=== PATIENT | male | born 1995 | race Caucasian/White ===

== ENCOUNTER 2019-11-03 14:50 | Emergency (ER) | payer OTHER ==
[~2019-11-03] VITALS: Ht 167.6 cm; Wt 79.4 kg
[2019-11-03] MEDS ORDERED: ONDANSETRON ODT8 MG PO (16:07)
== END 2019-11-03 16:20 | disposition home or self-care (01) ==
LOC: ED 14:50
DX: K52.9 Noninfective gastroenteritis and colitis, unspecified (principal)
CPT/HCPCS: 80053; 81001; 83690; 85025; 96361; 96374; 99284-25; J2405; J7030

== ENCOUNTER 2023-01-06 08:39 | Emergency (ER) | payer BC ==
[~2023-01-06] VITALS: Ht 167.6 cm; Wt 81.3 kg
[~2023-01-06 08:39] MED LIST: ONDANSETRON ODT8 MG PO
[2023-01-06] MEDS ORDERED: MAXITROL EYE DRO5 ML OPTH (08:51)
[2023-01-06 08:58] VITALS: BP 130/82
== END 2023-01-06 08:59 | disposition home or self-care (01) ==
LOC: ED 08:39
DX: H20.9 Unspecified iridocyclitis (principal)
CPT/HCPCS: 99283

== ENCOUNTER 2023-02-14 09:51 | Emergency (ER) | payer BC ==
[~2023-02-14] VITALS: Ht 167.6 cm; Wt 79.5 kg
--- OUTSIDE RECORDS SUMMARY | ~2023-02-14 | XMS | Continuity of Care Document ---
Demographics + + + | Address | [address] | | | [place] [address] | + + + | Preferred Language | Unknown | + + + | Marital Status | Never | + + + | Latter Day Affiliation | Unknown | + + + | Race | White | + + + | Ethnic Group | Not or | + + + Author + + + | Author | [place] | + + + | Organization | [place] | + + + | Address | [address] | | | [place] [address] | + + + | Phone | | + + + Care Team Providers + + + + | Care Assistant Professor In Family Studies Name | Role | Phone | + + + + Unavailable | Unavailable | + + + + Unavailable | Unavailable | + + + + Unavailable | Unavailable | + + + + Allergies and Intolerances + + + + + + | date | description | facility | reaction | severity | + + + + + + | (no date) | Allergies: | [facility] | (no reaction) | (no severity) | + + + + + + | (no date) | No Known | [facility] | (no reaction) | (no severity) | | | Allergies | | | | + + + + + + Encounters No information. Functional Status No information. Immunizations + + + + | date | description | facility | + + + + | 2023-01-06 00:00 | No vaccine administered | [facility] | + + + + Medications + + + + | date | description | facility | + + + + | 2023-01-06 00:00 | RODNEY/POLYMYX B | [facility] | | | SULF/DEXAMETH | | + + + + | 2023-01-06 00:00 | dexamethasone 1 MG/ML / | [facility] | | | neomycin 3.5 MG/ML / | | | | polymyxin B 100 | | + + + + Problems + + + + | date | description | facility | + + + + | 2023-01-06 00:00 | Iritis | [facility] | + + + + | 2023-01-06 08:40 | UNSPECIFIED IRIDOCYCLITIS | [facility] | + + + + Procedures No information. Results/Labs No information. Social History + + + + | date | description | facility | + + + + | 2023-01-06 00:00 | Never smoker | [facility] | + + + + Vital Signs + + + +---------+ | date | measurement | value | units | + + + +---------+ | 2023-01-06 00:00 | BMI | 28.9 | kg/m2 | + + + +---------+ | 2023-01-06 00:00 | BP_diastolic | 82 | mmHg | + + + +---------+ | 2023-01-06 00:00 | BP_systolic | 130 | mmHg | + + + +---------+ | 2023-01-06 00:00 | heart_rate | 81 | /min | + + + +---------+ | 2023-01-06 00:00 | height_metric | 167.64 | cm | + + + +---------+ | 2023-01-06 00:00 | height_standard | 66 | in | + + + +---------+ | 2023-01-06 00:00 | o2_saturation | 98 | % | + + + +---------+ | 2023-01-06 00:00 | respiration_rate | 16 | /min | + + + +---------+ | 2023-01-06 00:00 | temperature_metric | 36.83 | C | | | | | | + + + +---------+ | 2023-01-06 00:00 | | 98.3 | F | | | temperature_standar | | | | | d | | | + + + +---------+ | 2023-01-06 00:00 | weight_metric | 81.3 | kg | + + + +---------+ | 2023-01-06 00:00 | weight_standard | 179.24 | lb | + + + +---------+"
--- OUTSIDE RECORDS SUMMARY | ~2023-02-14 | XMS | Continuity of Care Document ---
Demographics + + + | Address | [address] | | | [place] [address] | + + + | Preferred Language | Unknown | + + + | Marital Status | Never | + + + | Holiness Affiliation | Unknown | + + + | Race | White | + + + | Ethnic Group | Not or | + + + Author + + + | Author | [place] | + + + | Organization | [facility] | + + + | Address | [address] | | | [place] [address] | + + + | Phone | | + + + Care Team Providers + + + + | Care Insulation And Flooring Assembler Name | Role | Phone | + [...] 2023-01-06 00:00 | No vaccine administered | [facility] | + + + + Medications + + + + | date | description | facility | + + + + | 2023-01-06 00:00 | RODNEY/POLYMYX B | [facility] | | | SULF/DEXAMETH | | + + + + | 2023-01-06 00:00 | dexamethasone 1 MG/ML / | [facility] | | | neomycin 3.5 MG/ML / | | | | polymyxin B 100 | | + + + + Problems + + + + | date | description | facility | + + + + | 2023-01-06 00:00 | Iritis | [facility] | + + + + | 2023-01-06 08:40 | UNSPECIFIED IRIDOCYCLITIS | [facility] | + + + + Procedures No information. Results/Labs No information. Social History + + + + | date | description | facility | + + + + | 2023-01-06 00:00 | Never smoker | [facility] | + + + + Vital Signs [...]
[~2023-02-14 09:51] MED LIST changes: +MAXITROL EYE DRO5 ML OPTH
[2023-02-14] MEDS ORDERED: CIPROFLOXACIN500 MG PO (10:05)
[2023-02-14 10:31] LABS: BILIRUBIN, URINE NEGATIVE (negative); BLOOD/HGB, URINE LARGE (Negative); KETONE, URINE NEGATIVE (Negative); LEUK ESTERASE, URINE NEGATIVE (negative); NITRITE, URINE NEGATIVE (negative)
[2023-02-14 10:36] LABS: RED BLOOD CELLS, URINE >50 /hpf (0-5)
[2023-02-14 10:37] LABS: BACTERIA, URINE RARE /hpf (negative); CRYSTALS, URINE NONE SEEN (0-1+); EPITHELIAL CELLS, URINE 0 /lpf (0-1+); REFLEX CULTURE, URINE No (No)
[2023-02-14 10:38] LABS: COLLECTION TYPE, URINE CLEAN CATCH
[2023-02-14] MEDS ORDERED: DOXYCYCLINE HY100 MG PO (11:06)
[2023-02-14] MEDS ORDERED: HYDROCODON-ACE1 EA10 PO (11:06)
[2023-02-14 11:07] VITALS: BP 130/84
== END 2023-02-14 11:53 | disposition home or self-care (01) ==
LOC: ED 09:51
PROVIDERS: Emergency Medicine
DX: N45.1 Epididymitis (principal); Z79.2 Long term (current) use of antibiotics
CPT/HCPCS: 51798; 76870; 81001; 96372; 99284-25; J0696

== ENCOUNTER 2023-03-04 05:42 | Day surgery (SDC) | payer BC ==
[~2023-03-04] VITALS: Ht 167.6 cm; Wt 80.7 kg
[~2023-03-04 05:42] MED LIST changes: +CIPROFLOXACIN500 MG PO; +DOXYCYCLINE HY100 MG PO; +FLOMAX0.4 MG PO; +HYDROCODON-ACE1 EA10 PO
[2023-03-04 05:59] VITALS: BP 162/93
[2023-03-04] MEDS ORDERED: PYRIDIUM100 MG PO (06:02)
[2023-03-04] MEDS ORDERED: PENICILLIN V P500 MG PO (06:02)
--- NOTE | 2023-03-04 09:46 | NUR ---
03/04/23 0946 Priyanka Epps 0940- PT ARRIVES TO PACU NONAROUSABLE TO STIMULI WITH AN OPA IN PLACE. RESP EVEN AND UNLABORED. OXYGEN SAT 100% ON 10L VIA MASK. JAW THRUST BEING PERFORMED TO MAINTAIN PATENT AIRWAY BY ANOTHER RN. 0944- OXYGEN TITRATED DOWN TO 6L VIA MASK. PT'S HEAD REPOSITIONED TO MAINTAIN PATENT AIRWAY WITHOUT A JAW THRUST.
[2023-03-04 10:10] VITALS: BP 168/83
[2023-03-04 11:21] VITALS: BP 143/79
--- NOTE | 2023-03-04 11:25 | NUR ---
1010: PT RETURNS TO UNIT FROM PACU, AWAKE AND ALERT ON ARRIVAL AND COMPLAINING OF ABD PAIN AND REPORTS THE PRESSURE SENSATION TO DEFECATE. DANGLED AT THE BEDSIDE. MAHSA WELL, DENIES DIZZINESS AND SOB. IV CONVERTED TO SL. PT AMBULATES TO BR WITH STANDBY FROM THIS RN AND FAY FATIMA. UNDABLE TO DEFECATE BUT VOIDS 75MLS IN URINAL WITH LARGE AMOUNT OF PINK TINGED URINE ON FLOOR. BACK TO STRETCHER. BP ELEVATED. PT REPORTS 7/10 BLADDER/ ABDOMINAL PAIN. JELLO PROVIDED AND PAIN MANAGEMENT DISCUSSED. PT AGREEABLE. POC REVIEWED. 1030: PT CALLS WITH REQUEST TO TRY TO GET UP TO BR AGAN. AMBULATES WITH STANDBY. UNSUCCESSFUL AND PT BACK TO STRETCHER. PRN PAIN RX ADMINISTERED. PT MAHSA PO INTAKE WELL AND DENIES NAUSEA. 1115: PT DROWSY AFTER RX ADMINSTRATION BUT ANSWERS QUESTIONS APPROPRIATELY. REPORTS IMPROVING PAIN LEVEL, 4/10. VSS, RESP EVEN AND UNLABORED. NO DRAINAGE PER PT FROM PENIS. NO NEEDS VOICED, CALL LIGHT WITHIN REACH
[2023-03-04 12:20] VITALS: BP 162/93
--- NOTE | 2023-03-04 12:58 | NUR ---
1220: PT AWAKE AND ALERT IN STRETCHER TALKING ON CELL PHONE. VSS, RESP EVEN AND UNLABORED. PT REPORTS MAHSA PAIN LEVEL, 4/10. REPORTS IMPROVED COMFORT AFTER URINATING THIS LAST TIME. VSS, RESP EVEN AND UNLABORED. SL REMOVED WITH CATH TIP INTACT AND PRESSURE APPLIED TO SITE, WNL. D/C INSTRUCTIONS PROVIDED AND DISCUSSED ORDERED. PT VOICES UNDERSTANDING AND DENIES QUESTIONS AND CONCERNS AT THIS TIME. TO DRESS INDEPENDENTLY FOR D/C 1240: WHEELED OFF OF UNIT AT THIS TIME. TRANSFERS INTO VEHICLE INDEPENDENTLY AND APPROPRIATELY. NO PHYSICAL S/S OF DISTRESS
--- NOTE | 2023-03-04 14:24 | NUR ---
PT AND TRASH MAN DENIED NEEDS. DECLINED BEDSIDE PRAYER. PRAYED SILENT PRAYER FOR SUCCESSFUL PROCEDURE AND ONGOING HEALING FROM OUTSIDE ROOM.
[2023-03-06 08:07] LABS: CALCULI MASS 81 mg (())
--- NOTE | 2023-03-06 17:40 | OR ---
[facility] [address] [place], [place] [address] Signed DATE OF OPERATION: 03/04/2023 SURGEON: Guero Johnston MD PREOPERATIVE DIAGNOSIS: Partially obstructing 7 mm distal left ureteral calculus with associated flank pain. POSTOPERATIVE DIAGNOSES: 1. Partially obstructing 7 mm distal left ureteral calculus with associated flank pain. 2. Large left ureterocele. 3. Small right ureterocele. PROCEDURES: 1. Diagnostic cystoscopy with left retrograde pyelogram. 2. Incision (meatotomy) of large left ureterocele. 3. Left ureteroscopy with basket extraction of distal left ureteral calculus. 4. Insertion of indwelling left ureteral stent. ANESTHESIA: General. ESTIMATED BLOOD LOSS: Minimal. COMPLICATIONS: None. SPECIMENS: Intact 6 mm left ureteral calculus sent to the lab for stone analysis. DRAINS: A 6 x 24 cm double-J ureteral stent inserted into the left collecting system. INDICATIONS FOR PROCEDURE: Mr. Rivas is a very pleasant 28-year-old gentleman with no prior history of nephrolithiasis, who recently presented to my clinic with a 3- to 4-month history of left-sided flank pain and more recently urinary frequency and dysuria. He had recently undergone a CT scan in the emergency department, which revealed a 7 mm distal left ureteral calculus that was approximately 2-3 cm just proximal to the left ureterovesical junction. After discussion of the risks and benefits of the procedure, the patient Electronically Signed By: GUERO JOHNSTON MD 03/06/23 0200 PATIENT NAME: JEREMI RIVAS OPERATIVE REPORT DATE OF : [birth year] REPORT #: [id number] PHYSICIAN: GUERO JOHNSTON MD PCP: GUNNER ESCALANTE PA-C REPORT IS CONFIDENTIAL AND NOT TO BE RELEASED WITHOUT AUTHORIZATION [facility] [address] [place], [place] [address] Signed agreed to undergo left ureteroscopy, laser lithotripsy and basket extraction of stone fragments. He presents today to undergo the aforementioned procedure. OPERATIVE FINDINGS: 1. On cystoscopy, there is no evidence of any suspicious masses, lesions, or stones; however, there is a very large left ureterocele present with an associated pinpoint left ureteral orifice. Also, noted is a smaller right ureteral orifice with again a diminutive right ureteral opening. 2. A large left ureterocele was incised under direct visualization using endoscopic scissors. An approximately 2.5 cm incision was created by opening up the existing pinpoint left ureteral orifice, this was done without any difficulty. 3. Using a ureteroscope and a Zero-tip basket, a 6 mm stone was found within the left ureterocele. The stone was extracted directly from the left ureterocele using a Zero-tip basket without difficulty. 4. Left retrograde pyelogram performed prior to incision of the ureterocele revealed a smooth-walled mass filled with contrast consistent with a peak left ureterocele. Also noted was left hydroureteronephrosis, which was more pronounced in the distal ureter that was up towards the proximal ureter. There is some blunting of the calices noted in the left kidney; however, there is no evidence of severe dilation of the left collecting system. No other filling defects were found within the left collecting system. 5. After the incision of the ureterocele and extraction of the stone, a 6 x 24 cm double-J ureteral stent was inserted into the patient's ureter under direct visualization. An adequate proximal coil was noted within the left renal pelvis along with an adequate distal coil within the patient's bladder. DESCRIPTION OF PROCEDURE: After informed consent was obtained, the patient was taken back to the operating room. He was transferred from the [facility] to the operating room table, where general anesthesia was induced. He was placed in the dorsal lithotomy position and his genitalia prepped and draped in a standard sterile fashion. His urethral meatus was dilated using [place] sounds from 18-Afghan to 28-Afghan without difficulty. Using a 22.5-Afghan introducer and a 30-degree lens, a rigid cystoscope was inserted through the urethra into her bladder under direct visualization. Panendoscopic views of bladder then obtained. Please see the findings. I asked Anesthesia to administer fluorescein to better visualize the ureteral orifices once I realized that they were abnormal. The right ureteral orifice began efflux urine pretty obviously after the fluorescein; however, it is still diminutive on that side and there was a small ureterocele associated with the right ureter. There was a very large bulbous balloon type structure that was consistent with ureterocele on the left side. The ureteral orifice on this side was extremely diminutive and pinpoint appearance. I was able to pass a 0.035 Sensor wire into the left ureteral orifice with the assistance of an open-ended ureteral catheter. I passed the wire up into the left kidney. I advanced the open-ended Electronically Signed By: GUERO JOHNSTON MD 03/06/23 4324 PATIENT NAME: JEREMI RIVAS OPERATIVE REPORT DATE OF : [birth year] REPORT #: [id number] PHYSICIAN: GUERO JOHNSTON MD PCP: GUNNER ESCALANTE PA-C REPORT IS CONFIDENTIAL AND NOT TO BE RELEASED WITHOUT AUTHORIZATION [address] [address] Signed ureteral catheter into the left ureterocele and pulled the Sensor wire, a left retrograde pyelogram was performed. Please see above findings. I then removed everything from the left collecting system and advanced endoscopic scissors, where I then incised the existing meatus of the left ureterocele. Again, this was very pinpoint, but I was able to incise it to an opening of approximately 2.5 cm. There was only very minimal bleeding associated with this portion of the procedure. It was at this time that I noted that the 6 mm stone was present within the left ureterocele. I removed the cystoscope and advanced a short semi-rigid ureteroscope into the left ureterocele and I was able to grasp the stone from within the left ureteral ureterocele and removed it from the bladder using a Zero-tip basket. The stone was placed in a specimen cup to be sent to the lab for stone analysis. With the ureterocele incised and the stone extracted, I then chose to move with placement of an indwelling ureteral stent. I recannulated the left ureter using a 0.035 Sensor wire and the ureter cannulated without difficulty. Over the wire, I passed a 7 x 24 cm double-J ureteral stent into the left collecting system. The stent went up easily and I was able to get a good proximal coil within the left renal pelvis along with a good coil within the bladder. The patient's bladder was then drained and the cystoscope was removed. The procedure was then terminated. The patient tolerated the procedure well without any complication. He will now be transferred to the Postanesthesia Care Unit in stable condition. DISPOSITION: I discussed the details of today's procedure with the patient's father and answered all of his questions. 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 This is usually diagnosed in childhood via recurrent UTIs. Apparently, Jeremi never experienced any UTIs growing out. Jeremi need to keep the double-J ureteral stent indwelling for a month, and at that time his stent will be removed. Beyond that, he will require a VCUG as well as a Lasix renal scan to evaluate the drainage and level of reflux that will be occurring on the left side now that his ureterocele was incised. He was given prescriptions for oxycodone today 5 mg 1-2 tablets p.o. q.4-6 hours p.r.n. pain, dispense #50, along with Cipro 500 mg p.o. b.i.d. for a total of 7 days. He will be scheduled return to clinic in one month to undergo an extraction of his indwelling ureteral stent. MD JONATHAN Nunes/LUXL /[id number] Electronically Signed By: GUERO JOHNSTON MD 03/06/23 1740 PATIENT NAME: JEREMI RIVAS OPERATIVE REPORT DATE OF : [birth year] REPORT #: [id number] PHYSICIAN: GUERO JOHNSTON MD PCP: GUNNER ESCALANTE PA-C REPORT IS CONFIDENTIAL AND NOT TO BE RELEASED WITHOUT AUTHORIZATION [address] [place] [address] Signed Copies: ~ Electronically Signed By: GUERO JOHNSTON MD 03/06/23 1740 PATIENT NAME: JEREMI RIVAS OPERATIVE REPORT DATE OF : [birth year] REPORT #: [id number] PHYSICIAN: GUERO JOHNSTON MD PCP: GUNNER ESCALANTE PA-C REPORT IS CONFIDENTIAL AND NOT TO BE RELEASED WITHOUT AUTHORIZATION
== END 2023-03-04 12:40 | disposition home or self-care (01) ==
LOC: DS 05:42 → OPS 05:42 → DS 07:30 → OPS 07:30
PROVIDERS: ATTEND Urology
PROC: 0T778DZ Dilation of Left Ureter with Intraluminal Device, Via Natural or Artificial Opening Endoscopic (ICD-10-PCS; 2023-03-04)
PROC: 0TB70ZZ Excision of Left Ureter, Open Approach (ICD-10-PCS; 2023-03-04)
PROC: 0TC78ZZ Extirpation of Matter from Left Ureter, Via Natural or Artificial Opening Endoscopic (ICD-10-PCS; principal; 2023-03-04 07:30)
DX: N13.2 Hydronephrosis with renal and ureteral calculous obstruction (principal); N28.89 Other specified disorders of kidney and ureter
CPT/HCPCS: 00860; 74420; 82365; C1769; C2617; J0690; J1100; J1885; J2250; J2405; J2704; J2765; J3010; J7121; Q9967

== ENCOUNTER 2023-04-08 10:46 | Day surgery (SDC) | payer BC ==
[~2023-04-08] VITALS: Ht 167.6 cm; Wt 81.8 kg
[~2023-04-08 10:46] MED LIST changes: +PENICILLIN V P500 MG PO; +PYRIDIUM100 MG PO
[2023-04-08 11:09] VITALS: BP 122/81
--- NOTE | 2023-04-08 11:53 | NUR ---
DR. JOHNSTON CALLS OUT FROM OR TO ASK IF PT WOULD LIKE TO RESCHEDULE FOR NEXT SATURDAY DUE TO DELAYS. PT STATES NOT HAVING ENOUGH PTO DAYS TO RESCHEDULE AND WOULD LIKE TO STAY AND "JUST GET IT DONE." OR CHARGE AWARE OF PT DECISION AND DR. JOHNSTON NOTIFIED. PT ENC TO USE CALL LIGHT WITH ANY NEEDS, FAMILY IN ROOM AT BEDSIDE.
[2023-04-08 14:50] VITALS: BP 123/78
--- NOTE | 2023-04-08 15:14 | NUR ---
[id number]: PT CONTINUES TO REST IN BED AWAKE AND ALERT, WATCHING TV. PT DENIES ANY HEADACHE OR DIZZINESS. CALL LIGHT WITHIN REACH.
--- NOTE | 2023-04-08 17:56 | NUR ---
04/08/23 175 Neeta Alvarado 1743 PT ARRIVED TO PACU ON 6L VIA MASK, PT RESTING WITH EYES CLOSED. RESP EVEN AND UNLABORED. 1751 PT WOKE TO TACTILE STIMULI AND O2 REMOVED.
[2023-04-08 18:19] VITALS: BP 141/97
--- NOTE | 2023-04-09 14:25 | OR ---
[facility] [address] [place], [place] [address] Signed DATE OF OPERATION: 04/08/2023 SURGEON: Guero Johnston MD PREOPERATIVE DIAGNOSES: 1. History of left ureteral calculus, status post ureteroscopic extraction of kidney stone. 2. Large left ureterocele, status post incision. 3. Indwelling left ureteral stent with a distal coil grown into the left ureterocele. POSTOPERATIVE DIAGNOSES: 1. History of left ureteral calculus, status post ureteroscopic extraction of kidney stone. 2. Large left ureterocele, status post incision. 3. Indwelling left ureteral stent with a distal coil grown into the left ureterocele. NAMES OF PROCEDURES: 1. Diagnostic cystoscopy. 2. Transurethral resection of left ureterocele (ureterocelectomy). 3. Extraction of indwelling left ureteral stent. ANESTHESIA: MAC. ESTIMATED BLOOD LOSS: None. COMPLICATIONS: None. SPECIMENS: Fragments of left ureterocele, sent to the lab for pathologic evaluation. DRAINS: None. INDICATIONS: Jeremi is very pleasant 28-year-old gentleman with no prior urologic history, who underwent extraction of a distal left ureteral calculus approximately one month ago. Upon entering the bladder, I immediately encountered a very large left ureterocele that Electronically Signed By: GUERO JOHNSTON MD 04/09/23 1425 PATIENT NAME: JEREMI RIVAS OPERATIVE REPORT DATE OF : [birth year] REPORT #: [id number] PHYSICIAN: GUERO JOHNSTON MD PCP: GUNNER ESCALANTE PA-C REPORT IS CONFIDENTIAL AND NOT TO BE RELEASED WITHOUT AUTHORIZATION [facility] [address] [place], [place] [address] Signed had gone previously undiagnosed. The ureterocele was incised and I made my way into left ureter where I was able to extract his obstructing ureteral calculus. A stent was placed at that time. Approximately one week ago, the patient presented to clinic to undergo extraction of his indwelling ureteral stent. Upon entering the bladder, I could easily appreciate that the patient's ureterocele had grown over the indwelling ureteral stent and I was unable to extract the stent at that time without the patient being under anesthetic. He presents today to undergo elective extraction of his indwelling ureteral stent under MAC anesthesia. OPERATIVE FINDINGS: 1. Cystoscopy reveals complete enclosure of the distal coil of the left indwelling ureteral stent with the ureterocele. I attempted to incise the ureter still using endoscopic scissors, however, this was not successful. I then made the decision to transurethrally resect the ureterocele in order to gain access to the indwelling left ureteral stent. 2. The patient's large left ureterocele was transurethrally resected without difficulty. Approximately two-thirds of the ureterocele was resected in order to gain access to the indwelling left ureteral stent. The fragments of ureterocele were extracted from the bladder and placed in a specimen cup to be sent to pathology for evaluation. 3. The patient's indwelling left ureteral stent was then removed using stent graspers under direct visualization without difficulty. DESCRIPTION OF PROCEDURE: After informed consent was obtained, the patient was taken back to the operating room. He was transferred from the [facility] to the operating room table, where MAC anesthesia was induced. He was placed in the dorsal lithotomy position. His genitalia prepped and draped in standard sterile fashion. Using a 30-degree lens on a 22.5-Djiboutian introducer, rigid cystoscope was inserted through his urethra and into his bladder under direct visualization. Panendoscopic views of the bladder were then obtained including the left ureteral orifice. Please see above findings. I initially made an attempt to incise the ureterocele again, so that I could gain access to the stent, however, this was unsuccessful. I then made the decision to transurethrally resect the dome of the ureterocele in order to gain access to the stent. I switched the 23-Djiboutian sheath for a 26-Djiboutian sheath. Prior to that sheath placement, I did dilate the patient's urethra from 14-Djiboutian to 26-Djiboutian without difficulty. I placed the 26-Djiboutian sheath using a visual obturator. The resectoscope was then inserted through the sheath. The dome of the ureterocele was then resected transurethrally using a 24-Djiboutian loop with bipolar cautery. The ureterocele resected easily and with minimal hemorrhage. In total, about two-thirds of the ureterocele was resected in order to gain access to the stent. I chose to leave the proximal 3rd of the ureterocele intact in an effort to prevent any worsening ureteral reflux that may occur now that his left ureteral orifice further exposed. Once I was satisfied with hemostasis of the edge of the ureterocele, I removed Electronically Signed By: GUERO JOHNSTON MD 04/09/23 4123 PATIENT NAME: JEREMI RIVAS OPERATIVE REPORT DATE OF : [birth year] REPORT #: [id number] PHYSICIAN: GUERO JOHNSTON MD PCP: GUNNER ESCALANTE PA-C REPORT IS CONFIDENTIAL AND NOT TO BE RELEASED WITHOUT AUTHORIZATION [address] [address] Signed the resectoscope and then reinserted a 22.5-Djiboutian sheath using a 30-degree lens. Graspers were used to remove the indwelling left ureteral stent fully intact without difficulty. I reinspected the left ureter and ureterocele after removal of the stent and was able to appreciate very good hemostasis in the area. I then drained the patient's bladder and removed the cystoscope. The procedure was then terminated. The patient tolerated the procedure well without any complication. He will now be transferred to the postanesthesia care unit in stable condition. DISPOSITION: I discussed the details of today's procedure with the patient's significant other and answered all of her questions. He will need an additional 5 days of Cipro b.i.d., which will be given to him today. He was also given an additional prescription for oxycodone 5 mg, dispense #10 as needed for pain. He will need to be scheduled to return to my clinic in two months for a urine check and for postoperative evaluation. At that time, I plan to schedule the patient to undergo a VCUG to evaluate for ureteral reflux on the left side as well as IVP to evaluate the drainage of the left collecting system. Both of these studies will be ordered at the time of his next office visit. This was explained in detail to the patient preoperatively today and he agrees with the current plan of care. MD JONATHAN Nunes/DUARTE /[id number] Copies: ~ Electronically Signed By: GUERO JOHNSTON MD 04/09/23 1425 PATIENT NAME: JEREMI RIVAS OPERATIVE REPORT DATE OF : [birth year] REPORT #: [id number] PHYSICIAN: GUERO JOHNSTON MD PCP: GUNNER ESCALANTE PA-C REPORT IS CONFIDENTIAL AND NOT TO BE RELEASED WITHOUT AUTHORIZATION
--- NOTE | 2023-04-15 14:54 | PATH ---
[facility] [address], [place] [address] Signed SPECIMEN(S): A LEFT URETEROCELE SPECIMEN SOURCE: A. LEFT URETEROCELE CLINICAL HISTORY: Left ureterocele. S/p L. stent. FINAL PATHOLOGIC DIAGNOSIS: Left ureterocele: - Fragment of benign urothelium with mild urothelial hyperplasia, negative for evidence of malignancy. JR:clv MICROSCOPIC EXAMINATION: Histologic sections of all submitted blocks are examined by light microscopy. These findings, together with the gross examination, support the pathologic diagnosis. Immunostains were performed with appropriate controls on block A2 and show the following: - CK5: Focally positive in basal urothelium. - CK20: Negative for full-thickness urothelial staining. JVR:clv GROSS DESCRIPTION: The specimen, labeled and designated "Audrey Rivas, " and designated on the requisition "left ureterocele," is received in formalin and consists of 3.6 x 2.5 x 0.6 cm aggregate of pink-sosa rubbery tissue. The specimen is entirely submitted in (A1-A2). FB (under the direct supervision of a pathologist) The Gross Description was prepared using a voice recognition system. The report was reviewed for accuracy; however, sound-alike word errors, addition and/or deletions may occur. If there is any question about this report, please contact Client Services. PERFORMING LABORATORY: Technical component was performed by [facility], [address] [place] [id number] (CLIA# [id number]). Professional interpretation was performed by [facility], [address] [place] [address], [place] [address] (CLIA#: [id number]). PATIENT NAME: ALLIE RIVAS PATHOLOGY DATE OF : [birth year] REPORT #: [id number] PHYSICIAN: MARJORIE PATHOLOGY PCP: GUNNER ESCALANTE PA-C REPORT IS CONFIDENTIAL AND NOT TO BE RELEASED WITHOUT AUTHORIZATION [address] [place] [address] Signed Diagnostician: David Evangelista MD Pathologist Electronically Signed 04/15/2023 Copies: ~ PATIENT NAME: ALLIE RIVAS PATHOLOGY DATE OF : [birth year] REPORT #: [id number] PHYSICIAN: MARJORIE PATHOLOGY PCP: GUNNER ESCALANTE PA-C REPORT IS CONFIDENTIAL AND NOT TO BE RELEASED WITHOUT AUTHORIZATION
== END 2023-04-08 18:30 | disposition home or self-care (01) ==
LOC: DS 10:46
PROVIDERS: ATTEND Urology
PROC: 0TP98DZ Removal of Intraluminal Device from Ureter, Via Natural or Artificial Opening Endoscopic (ICD-10-PCS; principal; 2023-04-08 13:45)
PROC: 0TB78ZZ Excision of Left Ureter, Via Natural or Artificial Opening Endoscopic (ICD-10-PCS; 2023-04-08 13:45)
DX: N28.89 Other specified disorders of kidney and ureter (principal)
CPT/HCPCS: 00910; J0690; J1885; J2405; J2704; J3010; J3490; J7121